=== PATIENT | female | born 1995 | race Caucasian/White ===

== ENCOUNTER 2017-05-22 16:54 | Emergency (ER) | payer SELFPAY ==
[~2017-05-22] VITALS: Ht 149.9 cm; Wt 56.8 kg
[2017-05-22 16:54] VITALS: BP 127/80
[2017-05-22] MEDS ORDERED: NAPR250T45 PO (17:32)
== END 2017-05-22 17:37 | disposition home or self-care (01) ==
LOC: M ED 16:54
DX: G56.01 Carpal tunnel syndrome, right upper limb (principal)

== ENCOUNTER 2017-10-01 16:55 | Emergency (ER) | payer OTHER, SELFPAY ==
[2017-10-01 17:52] LABS: BASO # 0.1 10^3/uL (0.0-0.2); BASO % 0.8 % (0.0-1.0); EOS # 0.1 10^3/uL (0.0-0.50); EOS % 1.8 % (0.0-3.0); HEMATOCRIT 40.1 % (36.0-47.0); HEMOGLOBIN 14.1 g/dl (12.0-16.0); IMMATURE GRANULOCYTE % 0.3 % (0-3.0); LYMPH # 1.9 10^3/uL (1.5-6.5); LYMPH % 29.3 % (24.0-44.0); MEAN CORPUSCULAR HEMOGLOBIN 30.4 pg (27.0-33.0); MEAN CORPUSCULAR HGB CONC 35.2 g/dl (32.0-36.5); MEAN CORPUSCULAR VOLUME 86.4 fl (80.0-96.0); MONO # 0.6 10^3/uL (0.0-0.8); MONO % 8.6 % (0.0-5.0); NEUTROPHILS # 3.9 10^3/uL (1.8-7.7); NEUTROPHILS % 59.2 % (36.0-66.0); PLATELET COUNT, AUTOMATED 245 10^3/uL (150-450); RED BLOOD COUNT 4.64 10^6/uL (4.00-5.40); RED CELL DISTRIBUTION WIDTH 12.1 % (11.5-14.5); WHITE BLOOD COUNT 6.6 10^3/uL (4.0-10.0)
[2017-10-01 18:03] LABS: KETONE, URINE AUTO RFX NEGATIVE (NEGATIVE); LEUKOCYTE ESTERASE UR AUTO RFX NEGATIVE (NEGATIVE); NITRITE, URINE AUTO RFX NEGATIVE (NEGATIVE); RBC, URINE AUTO RFX TNTC /HPF (0-3); SPECIFIC GRAVITY UR AUTO RFX 1.012 (1.002-1.035); SQUAM EPITHELIAL CELL UR AURFX 0 /HPF (0-6); WBC, URINE AUTO RFX 1 /HPF (0-3)
[2017-10-01 18:29] LABS: HCG, SERUM QUANTITATIVE 1095 MIU/ML
[2017-10-01 19:48] LABS: CHLAMYDIA DNA AMPLIFICATION NEGATIVE (NEGATIVE); GC DNA AMPLIFICATION NEGATIVE (NEGATIVE)
== END 2017-10-01 19:36 | disposition home or self-care (01) ==
LOC: M ED 16:55
DX: O03.9 Complete or unspecified spontaneous abortion without complication (principal)
CPT/HCPCS: 76801

== ENCOUNTER 2018-03-03 17:01 | Emergency (ER) | payer OTHER | END 2018-03-03 17:58 | disposition home or self-care (01) | LOC: M ED 17:01 | DX: M54.12 Radiculopathy, cervical region (principal); S16.1XXA Strain of muscle, fascia and tendon at neck level, initial encounter; X50.9XXA Other and unspecified overexertion or strenuous movements or postures, initial encounter; Y92.89 Other specified places as the place of occurrence of the external cause | CPT/HCPCS: 99282 ==

== ENCOUNTER 2019-01-27 15:59 | Outpatient (CLI) | payer OTHER ==
[~2019-01-27] VITALS: Ht 152.4 cm; Wt 71.7 kg
[~2019-01-27 15:59] MED LIST: ADVI200T PO; CEPH500C; HIBI4LIQ; IBUP-1022 PO; IBUP80TA; MUPI2OI; NAPR250T82 PO; ROBA500T PO
[2019-01-27] MEDS ORDERED: PRENTAB9 PO (16:14)
[2019-01-27 16:16] VITALS: BP 122/74
[2019-01-27 16:27] VITALS: BP 106/63
[2019-01-27 16:50] VITALS: BP 113/65
== END 2019-01-27 17:06 | disposition home or self-care (01) ==
LOC: M LDO 15:59
PROVIDERS: ATTEND Obstetrics & Gynecology
DX: O62.0 Primary inadequate contractions (principal); Z3A.40 40 weeks gestation of pregnancy
CPT/HCPCS: 59025; G0378; G0463

== ENCOUNTER 2019-01-28 11:45 | Inpatient (IN) | payer OTHER ==
[2019-01-28] VITALS (28 sets, daily range): BP systolic 105–152; BP diastolic 56–80
[~2019-01-28] VITALS: Ht 149.9 cm; Wt 73.5 kg
[~2019-01-28 11:45] MED LIST changes: +PRENTAB9 PO
[2019-01-28] MEDS ORDERED: LACTATED RINGER'S 1000 ML IV ONE (12:45)
[2019-01-28 12:48] LABS: HEMATOCRIT 36.7 % (36.0-47.0); HEMOGLOBIN 12.1 g/dl (12.0-15.5); MEAN CORPUSCULAR HEMOGLOBIN 26.8 pg (27.0-33.0); MEAN CORPUSCULAR VOLUME 81.4 fl (80.0-96.0); PLATELET COUNT, AUTOMATED 227 10^3/uL (150-450); RED BLOOD COUNT 4.51 10^6/uL (4.00-5.40); WHITE BLOOD COUNT 14.4 10^3/uL (4.0-10.0)
[2019-01-28] MEDS: LR 1,000 ML IV SCH ×2 (13:02→18:48)
[2019-01-28] MEDS ORDERED: FENTANYL 2MCG/ML ROPIVACAINE 0.2% IN 0.9% NACL 100ML IVBAG As Ordered ONE (13:28)
[2019-01-28] MEDS ORDERED: NALOXONE INJ 0.4 MG/1 ML VIAL (J2310) IV PRN ×3 (14:30→20:20)
[2019-01-28] MEDS ORDERED: REFRIGERATOR IV KEYS XX PRN (14:30)
[2019-01-28] MEDS ORDERED: ONDANSETRON 4MG/2ML VIAL (J2405) IV PRN ×3 (14:30→21:15)
[2019-01-28] MEDS ORDERED: EPIDURAL COMMENT XX SCH (14:30)
[2019-01-28] MEDS ORDERED: EPIDURAL/PCA KEYS XX PRN (14:30)
[2019-01-28] MEDS ORDERED: ePHEDrine SULFATE 25 MG/5 ML(5MG/ML) SYRINGE IV PRN (14:30)
[2019-01-28] MEDS ORDERED: diphenhydrAMINE INJ 50MG/ML VIAL (J1200) IV PRN ×2 (14:30→20:20)
[2019-01-28] MEDS: FENTANYL/ROPIVACAINE/NACL BAG 100 ML EPIDURAL SCH ×2 (14:31→23:14)
[2019-01-28] MEDS ORDERED: OXYTOCIN 30 UNITS IN 0.9% NaCl 500ML IV BAG (J2590) As Ordered ONE ×2 (15:02→21:34)
--- NOTE | 2019-01-28 15:19 | NUR ---
1518 hours category 1 strip pelvic exam still 1 cm -3 station contractions not effective will augment with Pitocin safe to proceed
[2019-01-28] MEDS ORDERED: OXYTOCIN DRIP 30 UNITS in APPROPRIATE DILUENT 1 EA IV SCH ×2 (15:30→21:01)
--- NOTE | 2019-01-28 17:14 | NUR ---
1700 hours called by nurse re monitor strip with below baseline and late deceleration. Plan of care d/c Pitocin efc placed cervix still 2cm no change position station no fluid seen .Plan maintain Pitocin off 30 minutes after if category 1 strip restart Pitocin, if late deceleration or positive sister superior then if remote from delivery cs indicated Patient expresses understanding 20 minute discussion. Total pitocin 1,5 ml
[2019-01-28] MEDS ORDERED: BICITRA 30ML SOLN UDC PO ONE (19:00)
[2019-01-28] MEDS ORDERED: BUPIVACAINE HCL 0.25% 10 ML VIAL SC ONE (19:15)
[2019-01-28] MEDS ORDERED: ACETAMINOPHEN 650 MG SUPP PR SCH (19:15)
[2019-01-28] MEDS ORDERED: AZITHROMYCIN INJ 500 MG, VIAL MATE ADAPTER 1 EACH in D5W 250 ML IV ONE (19:15)
[2019-01-28] MEDS ORDERED: ONDANSETRON 4MG/2ML VIAL (J2405) As Ordered ONE (19:45)
[2019-01-28] MEDS ORDERED: OXYTOCIN INJ 10 UNITS/ML VIAL (J2590) As Ordered ONE (19:45)
[2019-01-28] MEDS ORDERED: dexameTHASONE 4 MG/ML 1ML VIAL (J1100) As Ordered ONE (19:45)
[2019-01-28] MEDS ORDERED: MORPHINE PRES-FREE INJ 10 MG/10 ML VIAL (J2274) As Ordered ONE (20:06)
[2019-01-28] MEDS ORDERED: KETOROLAC 60 MG/2 ML VIAL (J1885) As Ordered ONE (20:06)
[2019-01-28] MEDS ORDERED: fentaNYL 100 MCG/2 ML INJECTION (J3010) As Ordered ONE ×2 (20:14→20:20)
[2019-01-28] MEDS ORDERED: METOCLOPRAMIDE INJ 10MG/2ML VIAL (J2765) IV PRN ×2 (20:20→21:15)
[2019-01-28] MEDS ORDERED: NALBUPHINE HCL 10 MG/ML AMP (J2300) IV PRN (20:20)
[2019-01-28] MEDS ORDERED: MIDAZOLAM INJ 2 MG/2 ML VIAL (J2250) As Ordered ONE (20:22)
[2019-01-28 20:30] LABS: CORD GAS ABE A -3.3; CORD GAS HCO3 A 23.2 MEQ/L; CORD GAS PCO2 A 46.5 mmHg; CORD GAS PH A 7.315 UNITS; CORD GAS SBC A 20.1 MEQ/L; CORD GAS TCO2 A 24.6 MEQ/L
[2019-01-28 20:33] LABS: CORD GAS ABE V -4.1; CORD GAS HCO3 V 19.9 MEQ/L; CORD GAS O2 SAT V 68.3 %; CORD GAS PCO2 V 33.6 mmHg; CORD GAS PH V 7.39 UNITS; CORD GAS PO2 V 29.1 mmHg; CORD GAS SBC V 20.4 MEQ/L; CORD GAS TCO2 V 20.9 MEQ/L
[2019-01-28] MEDS ORDERED: PROPOFOL 200 MG/20 ML VIAL As Ordered ONE (20:45)
[2019-01-28] MEDS ORDERED: MEASLES,MUMPS,RUBELLA VACCINE INJ (MMR-II) (90707) SC SCH (21:15)
[2019-01-28] MEDS ORDERED: RHOGAM 300 MCG (1500 IU) INJ (J2790) IM SCH (21:15)
[2019-01-28] MEDS ORDERED: PERCOCET 5MG/325MG TAB PO PRN ×3 (21:15)
[2019-01-28] MEDS ORDERED: MOM 30ML SUSPENSION UDC PO PRN (21:15)
[2019-01-28] MEDS ORDERED: MEPERIDINE INJ 25 MG/ML VIAL (J2175) IV PRN (21:15)
[2019-01-28] MEDS ORDERED: LR 1,000 ML IV SCH (21:15)
[2019-01-28] MEDS ORDERED: ACETAMINOPHEN 500 MG TAB PO PRN (21:15)
[2019-01-28] MEDS ORDERED: DOCUSATE SODIUM 100 MG CAP PO PRN (21:15)
[2019-01-28] MEDS ORDERED: fentaNYL 100 MCG/2 ML INJECTION (J3010) IV PRN (21:15)
[2019-01-29] VITALS (8 sets, daily range): BP systolic 101–116; BP diastolic 56–68
[2019-01-29] MEDS: KETOROLAC 30 MG/ML VIAL (J1885) IV SCH ×3 (02:04→13:59)
[2019-01-29] MEDS: LR 1,000 ML IV SCH (05:00)
[2019-01-29 06:27] LABS: HEMATOCRIT 31.3 % (36.0-47.0); MEAN CORPUSCULAR HEMOGLOBIN 26.6 pg (27.0-33.0); MEAN CORPUSCULAR HGB CONC 31.9 g/dl (32.0-36.5); MEAN CORPUSCULAR VOLUME 83.2 fl (80.0-96.0); PLATELET COUNT, AUTOMATED 187 10^3/uL (150-450); RED BLOOD COUNT 3.76 10^6/uL (4.00-5.40); WHITE BLOOD COUNT 14.7 10^3/uL (4.0-10.0)
--- NOTE | 2019-01-29 07:17 | IPNPDOC ---
Text Note Date of Service The patient was seen on 01/29/19. NOTE POD1 PLTCS States feeling well, pain controlled with prescribed meds. Baby bonding and feeding well. No heavy VB. Lochia slowing. Ambulatory. Tolerating PO without issues. UO adequate, leigh just removed. VSSAF NAD A&O RRR CTAB LE no C/C/E Ut at U-2, [employer] CDI, bandage removed This AM HCT 31.3, PLT 187 a/p: Doing well. Cont routine postop care. D/C tomorrow likely. Sessions Bc WYMAN, I+O Bc RUBY I+O Laboratory Tests 01/28/19 12:30 Red Blood Count 4.51, Mean Corpuscular Volume 81.4, Mean Corpuscular Hemoglobin 26.8 L, Mean Corpuscular Hemoglobin Concent 33.0, Red Cell Distribution Width 14.6 H 01/29/19 06:03 Red Blood Count 3.76 L, Mean Corpuscular Volume 83.2, Mean Corpuscular Hemoglobin 26.6 L, Mean Corpuscular Hemoglobin Concent 31.9 L, Red Cell Distribution Width 14.8 H Vital Signs Date Time Temp Pulse Resp B/P (MAP) Pulse Ox O2 Delivery O2 Flow Rate FiO2 01/29/19 05:53 98.1 59 16 107/59 (75) 97 01/28/19 20:55 95 I&O- Last 24 Hours up to 6 AM 01/29/19 06:00 Intake Total 5304 ml Output Total 1550 ml Balance 3754 ml AISHA BULLOCK MD Jan 29, 2019 07:17
[2019-01-29] MEDS: PRENATAL VITAMINS CHEWABLE TABLET PO SCH (07:55)
--- NOTE | 2019-01-29 09:14 | HPE ---
DATE OF ADMISSION: 01/28/2019 This lady is a 23-year-old, 3, para 0, abortio 2, last menstrual period (LMP) 04/21/2018, expected date of confinement (EDC) 01/26/2019, at 40 and 2 weeks of gestation with a history of spontaneous rupture of membranes and increasing contractions. PAST HISTORY: She had a spontaneous at 6 weeks in 2017. She had a spontaneous in 2018 at 6 weeks. LABS: O positive. HIV negative. Hepatitis negative. RPR negative. Rubella immune. Varicella nonimmune. Pap normal. Urine was negative. Gonorrhea and Chlamydia negative. One hour glucose was 142, the early one. The 3-hour GTT fasting was 73, 1-hour 153, 2-hour 131, and 3-hour 132. GBS was negative. PHYSICAL EXAMINATION: She appears to be distressed. Symphysis fundus height 40, vertex, nontender uterus. Four quadrant bowel sounds are noted. Copious amounts of clear liquid were noted. She was examined and found to be 1 cm posterior, 50% effaced, and -3 station with precipitating clear liquid. Blood pressure was 119/75, respirations 18, pulse 105, and temperature 99.3. Urine is pending. The rest of the examination is unremarkable. She is normocephalic, atraumatic. Neck full range of motion. Pupils equal and reactive to light. Distal pulses symmetric. No evidence of deep vein thrombosis, pulmonary embolus or superficial phlebitis. Chest is clear bilaterally at bases. No wheezes or rhonchi. No costovertebral angle tenderness. Abdomen soft. Uterus appropriate symphysis fundus height. Four quadrant bowel sounds are noted. She has no rashes, lesions or pruritus. No arthralgia, myalgia. No complaint of joint pain. No complaint of cough, wheeze, shortness of breath, or dyspnea on exertion. No bleeding. Neuro complete. No incontinence, urgency or frequency. No nausea, vomiting, diarrhea or constipation. The diabetic issues resolved with her 3-hour GTT. ASSESSMENT: Early labor with documented ruptured membranes at 1 cm, posterior, and obviously in some distress with the contractions. PLAN: To admit the patient. IV hydration. Epidural as needed. Follow along until delivery. We did discuss consent for vaginal delivery which is delivery through the vagina with a possible assistance of forceps or vacuum device as needed for maternal or indications, forceps or vacuum device that can assist with vaginal delivery when normal pushing efforts cannot achieve delivery on their own or when delivery is needed in emergency for the baby's well being. Medications may be required to induce or augment her labor which helps to achieve vaginal delivery, episiotomy may or may not be required to help baby deliver vaginally, may also require repair of any lacerations or tears of the vagina or vulva that are caused by delivery and in some cases emergencies can arise and emergency section is required for the well being of the baby and continued labor may be at risk for baby and mother. If there is no time to sign consent, the doctor will discuss the reason for the section prior to performing. The risks of vaginal delivery include, not limited to bleeding, infection, injury to the vagina or pelvic structures, injury to baby, damage to the uterus, reaction to anesthesia, uterine rupture, risk of hysterectomy for life threatening condition such as bleeding or even , medications used to induce or augment, increased risk of uterine tachysystole, uterine rupture, heart rate abnormality, need for emergency section and hemorrhage. Additional risks for the use of forceps and vacuum with maybe scratches, hematomas on the head or intracranial bleed. After expressing understanding of all these and answering all questions, the patient has agreed to continue on with active management and labor.
--- NOTE | 2019-01-29 09:43 | IPN ---
DATE: 01/28/2019 This lady and requested circumcision of her male . After discussing risks and benefits of circumcision, the medical and nonmedical indication, penile block and aftercare, they expressed understanding of penile block, aftercare and bleeding, signed the consent form. All questions were answered. 20 minute discussion. We await the clearance by the supervisory lifeguard.
--- NOTE | 2019-01-29 09:56 | IPN ---
DATE: 01/28/2019 Originally at 1700 hours, checked the patient was 2 cm with good recovery, variability was good. Periods of prolonged decreased variability. Positional change, IV fluids, stopped Pitocin, baby recovered nicely and after half an hour we attempted to put the Pitocin on again. Again, we had late decelerations, variability was moderate. Baseline was normal, but with every contraction she would have a late which recovered. Because she was remote from delivery, on examination there was no change in the cervix, again no amniotic fluid was noted. We elected that because she is remote from delivery and there is no progress that a primary section would be in order. After discussing the risks and benefits of section including hemorrhage, infection, perforation, , reoperation, remote possibility of blood transfusion, remote possibility of laceration, and/or baby in the NICU. The patient accepts the risks and benefit of the surgery as it is the best benefit for the baby, signed the consent form. All questions were answered, 20 minute discussion. We informed anesthesia and neonatology and the scalp electrode will be removed prior to starting the section.
--- NOTE | 2019-01-29 12:18 | RO ---
DATE OF PROCEDURE: 01/28/2019 PREPROCEDURE DIAGNOSES: Nonreassuring heart strip, failure to descend, failure to dilate, persistent late decelerations. POSTPROCEDURE DIAGNOSES: Nonreassuring heart strip, failure to descend, failure to dilate, persistent late decelerations, deep transverse and cord around the body times one. SURGEON: Tai Quiroga MD DIRECTOR OF PRODUCT DESIGN: Dr. Azar for assistance with retraction, extraction and visualization. ANESTHESIA: Epidural plus local anesthetic for intraperitoneal procedures. OPERATION PROPOSED: Primary section. OPERATION PERFORMED: Primary section. ESTIMATED BLOOD LOSS: 300 mL. DESCRIPTION OF PROCEDURE: After adequate time-out, prepped and draped in the supine position, Otoole catheter in the bladder draining clear urine, acetaminophen suppository 1300 mg per rectum, a Pfannenstiel incision was made two fingerbreadths above the symphysis pubis, passing through abdominal layers, securing hemostasis. Opening peritoneal cavity, bladder reflected well, thin lower uterine segment, clear liquid is noted. We delivered a live male in the OT position, really not engaged in the pelvis. The cord was around the body and hand at delivery. Male weighing 3510 grams, 7 pounds 12 ounces. scores of 9 and 9 at 1 and 5 minutes, respectively. Arterial pH 7.31, base excess -3.3. Venous pH 7.39, base excess -4.1. The placenta spontaneously delivered. Three vessel cord. Membranes and tissues intact. Sweeping out the uterine cavity, no evidence of debris was left in. THe uterus contracted well down under Pitocin. The lower segment was oversewn in the usual fashion, imbricating the second layer and reperitonealization. With instrument and pad counts correct, the ovaries and tubes appeared to be normal, the abdomen was then closed with a running stitch for the perineum, same for the fascia, interrupted subcutaneously, Dexon to the skin. Marcaine 0.25% 10 mL to the skin, spray and tape. The patient was sent back to recovery in good condition. HARSH
[2019-01-29] MEDS: IBUPROFEN 800 MG TAB PO SCH (22:11)
[2019-01-30 02:00] VITALS: BP 129/80
[2019-01-30 06:00] VITALS: BP 103/66
[2019-01-30] MEDS: IBUPROFEN 800 MG TAB PO SCH (06:29)
[2019-01-30] MEDS ORDERED: PERCOCET PO (07:23)
[2019-01-30] MEDS ORDERED: IBUP80TA PO (07:23)
[2019-01-30] MEDS ORDERED: COLA100C5 PO (07:23)
[2019-01-30] MEDS: PRENATAL VITAMINS CHEWABLE TABLET PO SCH (08:29)
--- NOTE | 2019-01-30 08:36 | DSES ---
DATE OF ADMISSION: 01/28/2019 DATE OF DISCHARGE: 01/30/2019 This lady had a primary section for non-reassuring heart strip, failure to descend, failure to dilate, persistent late decelerations. She delivered a live male infant, 3510 grams, 7 pounds 12 ounces, Apgars 9 and 9 at one and five minutes respectfully. Arterial pH 7.31, base excess -3.3; venous pH 7.39, base excess -4.1. Her admitting hemoglobin was 12.1, hematocrit 36.7 and platelets 222. Discharge hemoglobin 10.0, hematocrit 31.3 and platelets 187. Her vital signs on discharge, her blood pressure is 103/66, respirations are 20, pulse 68, and temperature 98.2. We discussed phlebitis, cystitis, mastitis, endometritis and cellulitis; diet, exercise and pain management; perineal, breast and wound care. Medications were dispensed at discharge. Followup for 2-week incision check and 6-week check. The baby to be taken to [place]. The rest of the examination unremarkable. Normocephalic, atraumatic. Neck full range of motion. Pupils equal and reactive to light. Distal pulses symmetric. No evidence of deep vein thrombosis (DVT), pulmonary embolus (PE) or superficial phlebitis. Chest is clear bilaterally at bases. No wheezes or rhonchi. No costovertebral (CVA) tenderness. Abdomen soft, uterus two below. Lochia is moderate. Four quadrant bowel sounds are noted. Incision is clean and dry. No rashes, lesions or pruritus. No complaints of cough, wheeze, shortness of breath or dyspnea on exertion. No arthralgia or myalgia. No urgency or frequency. No nausea, vomiting, diarrhea or constipation. In summary, we have a term gestation delivered by primary section, a live male infant. Plans for discharge were mentioned as well as dispensing medications. All questions were answered. The patient has a followup in two weeks' time. edited: 01/31/2019 [id number] tkf HARSH
== END 2019-01-30 10:55 | disposition home or self-care (01) | DRG 773 ==
LOC: M LDO 11:45 → M LDI 12:10 → M OBS 22:16
PROVIDERS: ADMIT Obstetrics & Gynecology; ATTEND Obstetrics & Gynecology
PROC: 10D00Z1 Extraction of Products of Conception, Low, Open Approach (ICD-10-PCS; principal; 2019-01-28 18:00)
DX: O48.0 Post-term pregnancy (principal); Z37.0 Single live birth; Z3A.40 40 weeks gestation of pregnancy; O76 Abnormality in fetal heart rate and rhythm complicating labor and delivery; O32.4XX0 Maternal care for high head at term, not applicable or unspecified; O62.0 Primary inadequate contractions; O69.82X0 Labor and delivery complicated by other cord entanglement, without compression, not applicable or unspecified; Z87.59 Personal history of other complications of pregnancy, childbirth and the puerperium